=== PATIENT | male | born 1955 | race Caucasian/White ===

== ENCOUNTER 2018-02-05 17:06 | Inpatient (IN) ==
[2018-02-05] MEDS: Apixaban 5 MG TABLET PO SCH (21:05)
[2018-02-06] MEDS: Aspirin 81 MG TAB.CHEW PO SCH (09:32)
[2018-02-06] MEDS: Metoprolol XL (24 HR) Succ 25 MG TAB.ER.24H PO SCH (09:32)
[2018-02-06] MEDS: Apixaban 5 MG TABLET PO SCH ×2 (09:32→20:41)
--- NOTE | 2018-02-06 12:13 | Internal Med History&Physical ---
Date of Encounter: 02/06/18 Time of Encounter: 11:40 Assessment and Plan (1) Cerebrovascular accident Current visit: No Status: Acute Continue Eliquis and aspirin. PT and OT evaluations with ongoing intervention will be done. Qualifiers: CVA mechanism: unspecified Qualified Code(s): I63.9 - Cerebral infarction, unspecified (2) Atrial fibrillation Current visit: No Status: Chronic Continue Eliquis and aspirin. Rate is controlled Qualifiers: Atrial fibrillation type: paroxysmal Qualified Code(s): I48.0 - Paroxysmal atrial fibrillation (3) DVT (deep venous thrombosis) Current visit: No Status: Chronic Continue Eliquis Qualifiers: DVT location: lower extremity Affected thrombotic vein of extremity: unspecified vein of extremity Chronicity: unspecified Laterality: unspecified laterality Qualified Code(s): I82.409 - Acute embolism and thrombosis of unspecified deep veins of unspecified lower extremity (4) Hypertension Current visit: No Status: Chronic Continue Toprol-XL Qualifiers: Hypertension type: essential hypertension Qualified Code(s): I10 - Essential (primary) hypertension Internal Medicine - H&P: HPI Chief complaint: Stroke Admitted From: Hospital to Hospital Transfer Plans for Post Hospital Care: Home History of present illness: Mr. Landers is a 62 year old male who was hospitalized at [facility] February 02 after presenting with stroke symptoms. MRI showed acute infarcts in the left putamen. Doppler studies were unremarkable. He was seen by neurologist and started on Eliquis and aspirin. He was transferred to [facility] swing bed for ongoing therapy needs. He denies previous strokes or seizures. He has chronic atrial fibrillation but discontinued Coumadin approximately 1995 which was prescribed initially for treatment of DVT/pulmonary emboli that occurred in 1994 and 1995. Past Med Surg Social Fam HX - Past Medical History Medical history: cancer, hyperlipidemia, myocardial infarction Psychiatric history: no psych history - Social History Smoking Status: Former smoker Smokeless Tobacco Status: No Alcohol use: none Drug use: none - Family History Mother Hx Family Cardiac Disorders: Yes Hx Family Neurologic Disorders: Yes Internal Medicine - H&P: Meds Apixaban [Eliquis] 5 mg PO BID #60 tablet 02/05/18 [Rx] Aspirin 81 mg PO DAILY #30 tab.chew 02/05/18 [Rx] Atorvastatin [Lipitor] 80 mg PO HS #60 tablet 02/05/18 [Rx] Metoprolol XL (24 HR) Succ [Toprol Xl] 25 mg PO DAILY #30 tab.er.24h 02/05/18 [Rx] Allergy/AdvReac Type Severity Reaction Status Date / Time codeine Allergy severe Verified 02/02/18 15:46 hives, "head blows off"?? All Systems PM: A 10-system review of systems was performed and is negative for pertinent findings except as documented above in the HPI. Review of systems: Gen.: He states his weight has been stable the past few months Cardiovascular: He has history of hypertension and known ASHD status post NM 2008 with 3 stents placed. He denies heart failure. He had DVT and pulmonary emboli 1994 and 1995. He was started on Eliquis and aspirin during his acute care stay at [facility]. Respiratory: He smoked from age [age] up to 3 packs per day. He reports PFTs were done approximately 2009 but he does not think he was diagnosed with COPD. He does not use home oxygen. He has not been tested for sleep apnea. GI: He has had cholecystectomy. He denies disorders of his liver or exocrine pancreas : He has had 2 kidney stones in the past. He denies other kidney bladder prostate disorders. Neurologic: As per history of present illness Endocrine: He has hyperlipidemia. He denies diabetes or thyroid disease. Hematology/oncology: He was diagnosed with non-Hodgkin's lymphoma approximately 2003. He took chemotherapy and has been in remission since 2005. He denies other internal malignancies or blood disorders. Psychiatric: He denies anxiety depression or other mental health issues. [place] skeletal: He denies arthritis gout or other bone joint or muscle disorders. - Constitutional Vitals: Temp Pulse Resp BP Pulse Ox 98.2 F 76 16 107/68 96 02/06/18 06:49 02/06/18 06:49 02/06/18 06:49 02/06/18 06:49 02/06/18 06:49 Exam: Gen.: He is a well-developed well-nourished male who appears in no acute distress at present time HEENT: Head is atraumatic and normocephalic. Eyes: EOMI. There is no scleral icterus. Mouth: Mucosa is moist. Neck: Supple and nontender. There is no thyromegaly or adenopathy noted. Heart: Irregularly irregular without murmurs or gallops Lungs: No wheezes or crackles are heard. Abdomen: Soft and nontender. No masses or guarding are noted. Extremities: There is no cyanosis edema or clubbing noted. Dorsalis pedis and posttibial pulses are 1-2 over 2 bilaterally. Neurologic: Mental status: He is talkative and a good historian. Cranial nerves: Smile is symmetric. Forehead wrinkles bilaterally. Tongue protrudes midline. EOMI. Motor: He has slight right arm pronator drift. Ankle flexion and extension strength against resistance is 1 over 2 with the right foot in 2 over 2 with the left foot. Rapid finger movements are significantly slowed with the right hand compared to the left. Cerebellar: Finger to nose is intact bilaterally. Skin: Warm and dry
[2018-02-07] MEDS: Apixaban 5 MG TABLET PO SCH ×2 (08:40→20:43)
[2018-02-07] MEDS: Aspirin 81 MG TAB.CHEW PO SCH (08:41)
[2018-02-07] MEDS: Metoprolol XL (24 HR) Succ 25 MG TAB.ER.24H PO SCH (08:41)
[2018-02-08] MEDS: Apixaban 5 MG TABLET PO SCH ×2 (08:35→20:51)
[2018-02-08] MEDS: Aspirin 81 MG TAB.CHEW PO SCH (08:35)
[2018-02-08] MEDS: Metoprolol XL (24 HR) Succ 25 MG TAB.ER.24H PO SCH (08:35)
[2018-02-09] MEDS: Aspirin 81 MG TAB.CHEW PO SCH (07:57)
[2018-02-09] MEDS: Metoprolol XL (24 HR) Succ 25 MG TAB.ER.24H PO SCH (07:57)
[2018-02-09] MEDS: Apixaban 5 MG TABLET PO SCH ×2 (07:57→20:07)
--- NOTE | 2018-02-09 12:39 | Internal Med Progress Note ---
Date of Encounter: 02/09/18 Time of Encounter: 12:30 - Assessment and plan (1) Cerebrovascular accident Current Visit: No Status: Acute Assessment and plan: February 09. Continue therapy intervention with Eliquis and aspirin. Qualifiers: CVA mechanism: unspecified Qualified Code(s): I63.9 - Cerebral infarction, unspecified (2) Atrial fibrillation Current Visit: No Status: Chronic Assessment and plan: February 09. Continue Eliquis and aspirin Qualifiers: Atrial fibrillation type: paroxysmal Qualified Code(s): I48.0 - Paroxysmal atrial fibrillation (3) DVT (deep venous thrombosis) Current Visit: No Status: Chronic Assessment and plan: February 09. Continue Eliquis and aspirin Qualifiers: DVT location: lower extremity Affected thrombotic vein of extremity: unspecified vein of extremity Chronicity: unspecified Laterality: unspecified laterality Qualified Code(s): I82.409 - Acute embolism and thrombosis of unspecified deep veins of unspecified lower extremity (4) Hypertension Current Visit: No Status: Chronic Assessment and plan: February 09. Continue Toprol XL Qualifiers: Hypertension type: essential hypertension Qualified Code(s): I10 - Essential (primary) hypertension - Subjective Interval history: February 09. He has no new complaints and feels improved. - Constitutional Vitals: Temp Pulse Resp BP Pulse Ox 96.7 F L 80 16 136/82 97 02/09/18 07:05 02/09/18 07:05 02/09/18 07:05 02/09/18 07:05 02/09/18 07:05 Exam: He has resting comfortably in bed and appears in no acute distress. His affect is bright and cheerful. He is able to lift his right arm over his head without difficulty. I reviewed his medications and lab results. Consult Discharge Plan - Plan Referrals: Nayely Gibson CNP [Primary Care Provider] - 1 week
[2018-02-10] MEDS: Metoprolol XL (24 HR) Succ 25 MG TAB.ER.24H PO SCH (07:49)
[2018-02-10] MEDS: Apixaban 5 MG TABLET PO SCH ×2 (07:49→21:01)
[2018-02-10] MEDS: Aspirin 81 MG TAB.CHEW PO SCH (07:50)
[2018-02-11 07:00] VITALS: BP 135/55
[2018-02-11] MEDS: Apixaban 5 MG TABLET PO SCH (09:47)
[2018-02-11] MEDS: Metoprolol XL (24 HR) Succ 25 MG TAB.ER.24H PO SCH (09:47)
[2018-02-11] MEDS: Aspirin 81 MG TAB.CHEW PO SCH (09:47)
--- NOTE | 2018-02-11 10:08 | Discharge Summary ---
Date of Encounter: 02/11/18 Time of Encounter: 09:55 - Discharge Diagnosis (1) Cerebrovascular accident Priority: Primary Status: Acute Qualifiers: CVA mechanism: unspecified Qualified Code(s): I63.9 - Cerebral infarction, unspecified (2) Atrial fibrillation Priority: Secondary Status: Chronic Qualifiers: Atrial fibrillation type: paroxysmal Qualified Code(s): I48.0 - Paroxysmal atrial fibrillation (3) DVT (deep venous thrombosis) Priority: Secondary Status: Chronic Qualifiers: DVT location: lower extremity Affected thrombotic vein of extremity: unspecified vein of extremity Chronicity: unspecified Laterality: unspecified laterality Qualified Code(s): I82.409 - Acute embolism and thrombosis of unspecified deep veins of unspecified lower extremity (4) Hypertension Priority: Secondary Status: Chronic Qualifiers: Hypertension type: essential hypertension Qualified Code(s): I10 - Essential (primary) hypertension Hospital course: Mr. Landers is a 62 year old male who was hospitalized at [facility] February 02 after presenting with stroke symptoms. MRI showed acute infarcts in the left putamen. Doppler studies were unremarkable. He was seen by neurologist and started on Eliquis and aspirin. He was transferred to [facility] swing bed for ongoing therapy needs. Initial orders were written by the discharging physician at [facility]. I saw him on February 06 and performed the swing bed history and physical. He had physical therapy and occupational therapy evaluations with ongoing intervention. He made satisfactory progress with noticeable improvement in strength and balance. On February 11 he wished to be discharged home. He will follow with his PCP within 1 week. He will remain on aspirin and Eliquis. - Time Spent with Patient Total time spent providing and/or coordinating discharge services: - Discharge Medications Prescriptions: Apixaban [Eliquis] 5 mg PO BID #60 tablet Atorvastatin [Lipitor] 80 mg PO HS #60 tablet Metoprolol XL (24 HR) Succ [Toprol Xl] 25 mg PO DAILY #30 tab.er.24h Home Medications: Aspirin 81 mg PO DAILY #30 tab.chew 02/05/18 [Rx] Apixaban [Eliquis] 5 mg PO BID #60 tablet 02/11/18 [Rx] Atorvastatin [Lipitor] 80 mg PO HS #60 tablet 02/11/18 [Rx] Metoprolol XL (24 HR) Succ [Toprol Xl] 25 mg PO DAILY #30 tab.er.24h 02/11/18 [Rx] Allergies/Adverse Reactions: Allergy/AdvReac Type Severity Reaction Status Date / Time codeine Allergy severe Verified 02/02/18 15:46 hives, "head blows off"?? Date of admission: 02/05/18 18:06 Primary care physician: Nayely Gibson CNP Consults: 02/05/18 17:56 Consult to Occupational Therapy [CONS] Routine Comment: Evaluate, Develop, and Implement Plan of Care Reason for Consult: Evaluate, Develop, and Implement Plan of Care Does patient have active BEDREST order?: No Is patient medically & hemodynamically stable?: Yes Patient assessed for mobility or mobilized this visit?: No Consult to Physical Therapy [CONS] Routine Comment: Evaluate, Develop, and Implement Plan of Care Reason for Consult: Evaluate, Develop, and Implement Plan of Care Does patient have active BEDREST order?: No Is patient medically & hemodynamically stable?: Yes Patient assessed for mobility or mobilized this visit?: No Consult to Keeler Polygraph Operator [CONS] Routine Reason for SW Consult: Discharge Planning - Constitutional Vitals: Temp Pulse Resp BP Pulse Ox 97.3 F L 87 18 135/55 97 02/11/18 06:57 02/11/18 06:57 02/11/18 06:57 02/11/18 06:57 02/11/18 06:57 - Patient Status Disposition: Home, Self-Care - Discharge Instructions Follow Up With: Nayely Gibson CNP [Primary Care Provider] - 1 week - Diet and Activity Activity: increase activity as tolerated Diet: advance to your usual diet
== END 2018-02-11 11:55 | disposition home or self-care (01) | DRG 57 ==
LOC: INPPIK 18:06
PROVIDERS: ADMIT Internal Medicine; ATTEND Internal Medicine